=== PATIENT | male | born 1995 | race Caucasian/White ===

== ENCOUNTER 2023-10-14 16:10 | Emergency (ER) | payer OTHER, SELFPAY ==
[2023-10-14 16:21] VITALS: BP 157/99; PULSE 72; RESP 16; TEMP 36.7; O2SAT 100; BMI 20.5
--- NOTE | 2023-10-14 17:04 | ED.DENTAL1 ---
HPI - Dental/Oral General Chief complaint: Dental/Oral Stated complaint: POSS TOOTH INFECTION Time Seen by Provider: 10/14/23 17:03 Source: patient Mode of arrival: walk-in Limitations: no limitations History of Present Illness HPI Narrative: patient's here complaining of right mandibular and maxillary pain. He has chronic long-standing dental problems. He just got his insurance instituted today. He is to see a dentist on [address] in [facility] and is going to call him. He is not running a fever. He does have some swelling. He is not on any antibiotics. He does not use drugs alcohol and has no history of immunocompromising disorders or diabetes. No other complaints today Related Data Home Medications Medication Instructions Recorded Confirmed No Known Home Medications 10/14/23 10/14/23 Allergies Allergy/AdvReac Type Severity Reaction Status Date / Time No Known Drug Allergies Allergy Verified 10/14/23 16:21 [facility] Social History Smoking status: Heavy tobacco smoker Exam Narrative Exam Narrative: wasn't well-hydrated well-nourished Naqvi mild to moderate discomfort holding his right mandibular area. He does not have any trismus. There is no stridor there is no drooling his tongue protrudes in the midline. The floor the mouth is normal. Overall he has extensive periodontal disease in both the mandible and maxilla expressed here in the posterior dental area his anterior teeth is not too bad. There is no pointing fluctuance or abscess that I can determine. There is no facial swelling. Cranial nerves are normal. Constitutional Vital Signs, click to edit/add: Last Vital Signs Temp 98.1 F 10/14/23 16:21 Pulse 72 10/14/23 16:21 Resp 16 10/14/23 16:21 BP 157/99 H 10/14/23 16:21 Pulse Ox 100 10/14/23 16:21 O2 Del Method Room Air 10/14/23 16:21 Course Vital Signs Vital signs: Vital Signs Temperature 98.1 F 10/14/23 16:21 Pulse Rate 72 10/14/23 16:21 Respiratory Rate 16 10/14/23 16:21 Blood Pressure 157/99 H 10/14/23 16:21 Pulse Oximetry 100 10/14/23 16:21 Oxygen Delivery Method Room Air 10/14/23 16:21 Temperature 98.1 F 10/14/23 16:21 Pulse Rate 72 10/14/23 16:21 Respiratory Rate 16 10/14/23 16:21 Blood Pressure 157/99 H 10/14/23 16:21 Pulse Oximetry 100 10/14/23 16:21 Oxygen Delivery Method Room Air 10/14/23 16:21 MDM - Dental/Oral MDM Narrative Medical decision making narrative: extensive chronic periodontal disease with increasing pain. We'll start him on clindamycin. He is to follow-up with local dentist. He's alternate Aleve with Tylenol. Wheeler at nighttime only Discharge Plan Discharge Chief Complaint: Dental/Oral Clinical Impression: Toothache Patient Disposition: Home, Self-Care Time of Disposition Decision: 17:06 Prescriptions / Home Meds: No Action No Known Home Medications Additional Instructions: clindamycin/Wheeler/alternate Tylenol with Aleve Stand Alone Forms: Portal Instructions Referrals: Bin Mariaon MD [Primary Care Provider] - 1 week
--- NOTE | 2023-10-14 17:27 | PC.NURSE ---
Dental pain to right upper and lower jaw.
== END 2023-10-14 17:29 | disposition home or self-care (01) ==
PROVIDERS: Emergency Provider Emergency Medicine Emergency Medical Services; PCP Family Medicine
DX: K08.89 Other specified disorders of teeth and supporting structures (principal); F17.210 Nicotine dependence, cigarettes, uncomplicated
CPT/HCPCS: 99283